=== PATIENT | female | born 1940 | race Caucasian/White ===

== ENCOUNTER → 2017-08-05 13:08 | Outpatient (CLI) | payer MEDICARE, SELFPAY | PROVIDERS: Family Provider Internal Medicine; PCP Internal Medicine; Visit Provider Internal Medicine | DX: N89.8 Other specified noninflammatory disorders of vagina (principal) | CPT/HCPCS: 87070; 87205 ==

== ENCOUNTER → 2017-08-08 08:12 | Outpatient (CLI) | payer MEDICARE, SELFPAY ==
[2017-08-08 08:56] LABS: Absolute Lymphocyte Count 1.59 X10^3/ul (0.83-4.51); Basophil# 0.03 X10^3/uL; Basophil% 0.5 % (0-1); Eosinophil# 0.23 X10^3/uL; Eosinophils% 3.5 % (0-5); Hematocrit 45.4 % (37-47); Hemoglobin 15.2 g/dl (12.0-15.0); Lymphocyte # 1.59 X10^3/ul (4.0); Lymphocyte % 24.3 % (19-41); Mean Corp Hgb Conc 33.5 g/gl (32-36); Mean Corpuscular Hgb 31.1 pg (27.0-32.0); Mean Platelet Vol. 9.5 fl (6.2-12.0); Monocyte# 0.69 X10^3/uL; Monocyte% 10.6 % (0-10); Neutrophil # 3.98 X10^3/uL (2.7-7.7); Neutrophil % 60.9 % (47-70); Platelet Count 268 K/mm3 (150-450); RBC Distribution Width CV 13.6 % (11.6-14.6); Red Blood Count 4.88 M/mm3 (4.2-5.4); White Blood Count 6.5 K/mm3 (4.4-11.0)
[2017-08-08 08:59] LABS: POSITIVE COUNT NO; POSITIVE DIFFERENTIAL NO; POSITIVE MORPHOLOGY NO
[2017-08-08 09:25] LABS: ALB/GLOB Ratio 1.1 RATIO (0.9-2.4); AST(SGOT) 27 U/L (15-37); Alanine Aminotransfer ALT/SGPT 38 U/L (13-56); Albumin, Serum 4.1 g/dL (3.2-5.0); Alkaline Phosphatase 69 U/L (45-117); Anion Gap 7 (5-15); BUN 18 mg/dL (7-18); BUN/Creat Ratio 16.5 RATIO (10-20); Chloride 100 mmol/L (98-107); Creatinine, Serum 1.09 mg/dL (0.55-1.02); EST Glomerular Filtration Rate 51 mL/min (>60); Est Glom Filt Rate - Afr Amer 62 mL/min (>60); Ferritin 420 ng/mL (8-252); Globulin 3.6 g/dL (2.2-4.2); Glucose 96 mg/dL (74-106); Potassium 4.3 mmol/L (3.5-5.1); Protein, Total 7.7 g/dL (6.4-8.2); Sodium Level 136 mmol/L (136-145)
[2017-08-08 09:28] LABS: Vitamin D,25 Hydroxy 50.4 ng/mL (29.95-100.01)
[2017-08-09 20:07] LABS: CHOLESTEROL TOTAL 157 mg/dL (100-199); HDL-C 61 mg/dL (>39); HDL-P TOTAL 46.1 umol/L (>=30.5); SMALL LDL-P 463 nmol/L (<=527); TRIGLYCERIDES 115 mg/dL (0-149)
[2017-08-10 11:16] LABS: LDL SIZE 20.6 nm (>20.5); LDL-C 73 mg/dL (0-99); LDL-P 942 nmol/L (<1000); LP-IR SCORE ** 42 (<=45)
== END ==
PROVIDERS: Family Provider Internal Medicine; PCP Internal Medicine; Visit Provider Internal Medicine
DX: I10 Essential (primary) hypertension (principal); R79.9 Abnormal finding of blood chemistry, unspecified; E55.9 Vitamin D deficiency, unspecified
CPT/HCPCS: 36415; 80053; 80061; 82306; 82728; 83704; 85025

== ENCOUNTER → 2017-08-11 14:59 | Outpatient (CLI) | payer MEDICARE, SELFPAY ==
--- NOTE | 2017-08-11 15:07 | US_ITS ---
STUDY: ULTRASOUND OF THE FEMALE PELVIS - COMPLETE REASON FOR EXAM: Female, 77 years old. Pelvic cramping. LMP: Unknown. TECHNIQUE: Transabdominal and Transvaginal TECHNICAL QUALITY: Adequate. COMPARISON: CT of the abdomen and pelvis dated October 09, 2015. FINDINGS: The uterus is anteverted and is in a midline position. The uterus measures 6.5 x 3.2 x 4.1 cm. Normal uterine cervix. The endometrium measures 1.9 mm in thickness, and is hyperechoic. There is no demonstrated endometrial mass. There is an echogenic myometrial mass located within the posterior myometrium measuring 2.9 x 2.0 x 2.1 cm. There is a second echogenic nodule within the anterior myometrium measuring 11.5 x 9.6 x 13.9 mm. I.U.D. - The patient does not have an I.U.D. The right ovary is non-visualized. There is no visualized right adnexal mass or complex lesion. There is normal arterial and normal venous vascularity. The left ovary is non-visualized. There is no visualized left adnexal mass or complex lesion. There is normal arterial and normal venous vascularity. There is no fluid in the cul-de-sac. US/Pelvic (Non ) IMPRESSION: 1. Multiple uterine masses. The largest mass appears to have fat within it. 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 Liposarcoma is not excluded. The smaller mass is probably a leiomyoma. 2. Nonvisualization of the ovaries. Electronically Signed: Maryan Coughlin MD at 9:19 EDT , Service support ,
== END ==
PROVIDERS: Family Provider Internal Medicine; PCP Internal Medicine; Visit Provider Internal Medicine
DX: R10.31 Right lower quadrant pain (principal); R10.32 Left lower quadrant pain
CPT/HCPCS: 76856

== ENCOUNTER → 2017-08-25 07:02 | Outpatient (CLI) | payer MEDICARE, SELFPAY ==
--- NOTE | 2017-08-25 07:06 | MRI_ITS ---
STUDY: MR PELVIS WITH T WITHOUT CONTRAST REASON FOR EXAM: Female, 77 years old. Uterine mass, f/u to u/s, pelvic pain, bleeding TECHNIQUE: Standardized fat and water weighted pulse sequences were obtained in all 3 orthogonal planes, pre-and post contrast administration. 7 ml of Gadavist contrast material was administered intravenously for the contrast portion of the examination. COMPARISON: US Pelvis Aug 11 2017 3:12pm CT Abdomen/Pelvis Oct 09 2015 11:06am FINDINGS: Normal urinary bladder. Normal visualized small intestine. Normal visualized colon. There is no pelvic fluid. There is a 31 x 20mm mixed T2 signal mass in the midline uterine fundus. It has central low T2 signal and peripheral increased T2 signal. This lesion also has mixed T1 signal. There is no enhancement. There is a 13x 11mm low T2 signal mass slightly to the left of midline in the uterine fundus. It has low STIR signal. There is diffuse atherosclerotic calcification of the pelvic arteries. There are diffuse degenerative changes of the visualized lumbar spine. Normal abdominal wall. 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 There is a fibroid of the left uterine body. Electronically Signed: Danyel Jean Baptiste MD at 23:30 EDT , Service support ,
== END ==
PROVIDERS: Family Provider Internal Medicine; PCP Internal Medicine; Visit Provider Internal Medicine
DX: N85.9 Noninflammatory disorder of uterus, unspecified (principal)
CPT/HCPCS: 72197; A9585

== ENCOUNTER → 2017-09-29 07:58 | Outpatient (CLI) | payer MEDICARE, SELFPAY ==
--- NOTE | 2017-09-29 08:00 | CT_ITS ---
STUDY: CT ABDOMEN AND PELVIS WITH AND WITHOUT CONTRAST REASON FOR EXAM: Female, 77 years old. Microscopic hematuria. RADIATION DOSAGE (If Supplied By Facility): CTDIvol = ( 13.84 ) mGy, DLP = ( 1221.35 ) mGycm TECHNIQUE: Transaxial images were obtained from the dome of the diaphragm to the symphysis pubis without oral contrast. 100 ml of Isovue 300 contrast was administered. Sagittal and coronal images were reconstructed. Individualized dose optimization techniques were used for this CT. COMPARISON: Comparison is made with prior study dated October 09, 2015. FINDINGS: Stable mild increased markings at the lung bases suggestive of a mild degree of scarring. The visualized portions of the heart are within normal limits. Normal liver. Normal gallbladder and extrahepatic biliary system. Normal spleen. Normal pancreas. Normal bilateral adrenal glands. Punctate calcification in the posterior mid calyx of the right kidney. Normal left kidney. Moderate sized hiatal hernia. Normal small intestine. There are multiple colonic diverticula consistent with diverticulosis. The appendix is visualized and appears normal. There is diffuse atherosclerotic calcification of the abdominal aorta, without a demonstrated aneurysm. Normal inferior vena cava. Normal retroperitoneum. Normal urinary bladder. There is a 1.8 cm x 2.6 cm hypodensity in the fundal portion of the uterus. This most likely represents uterine fibroid. The pessary device is not seen at this time. Normal abdominal wall. There are degenerative changes of the visualized lumbar spine. CT/CT Abd/Pelvis W/WO Contrast IMPRESSION: Stable punctate calcification in the lower pole cortex of the right kidney. Electronically Signed: Denilson Sarkar MD at 10:56 EDT Tel [phone], Service support ,
[2017-09-29 08:15] LABS: CREATININE FINGERSTICK 0.6 mg/dL (0.55-1.02); EGFR FINGERSTICK > 60.0000 mL/min (>60)
== END ==
PROVIDERS: Family Provider Internal Medicine; PCP Internal Medicine; Visit Provider Nurse Practitioner Adult Health
DX: Z01.812 Encounter for preprocedural laboratory examination (principal); R31.29 Other microscopic hematuria
CPT/HCPCS: 74178; Q9967

== ENCOUNTER → 2018-01-24 14:49 | Outpatient (CLI) | payer MEDICARE, SELFPAY ==
--- NOTE | 2018-01-24 14:51 | RAD_ITS ---
STUDY: X-RAY - RIGHT KNEE REASON FOR EXAM: Pain. TECHNIQUE: 4 view(s) of the knee. COMPARISON: Radiographs 09/13/2014. FINDINGS: Normal visualized distal femur. Normal visualized proximal tibia and fibula. Normal proximal tibiofibular articulation. There is mild space narrowing of the medial femorotibial compartment. Normal lateral femorotibial compartment. Normal patellofemoral articulation. There is an enthesophyte at the superior pole of the patella. RAD/Knee 4 or More Views IMPRESSION: Mild arthrosis of the medial femorotibial compartment without interval change. Electronically Signed: Moustapha Israel MD at 13:41 EDT Tel , Service support ,
== END ==
PROVIDERS: Family Provider Internal Medicine; PCP Internal Medicine; Referring Provider Orthopaedic Surgery; Visit Provider Orthopaedic Surgery
DX: M25.561 Pain in right knee (principal)
CPT/HCPCS: 73564

== ENCOUNTER → 2018-01-25 14:40 | Outpatient (CLI) | payer MEDICARE, SELFPAY ==
--- NOTE | 2018-01-25 14:42 | BI_ITS ---
MAMMOGRAPHY - BILATERAL SCREENING REASON FOR EXAM: Female, 77 years old. Routine annual screening examination. PERTINENT HISTORY: Aunt with breast cancer. Remote right excisional breast biopsy. TECHNIQUE: Digital bilateral breast alexus (3D mammographic acquisition) in the CC and MLO projections. 2-D mediolateral oblique (MLO) and craniocaudad (CC) views of both breasts were obtained. CAD: Full Field Digital Mammography with Computer Added Detection was performed. COMPARISON: Comparison is made with prior examination dated October 25, 2016 and April 08, 2014. FINDINGS: Breast Composition: There are scattered areas of fibroglandular density. There are no dominant masses or suspicious calcifications. Stable small benign-appearing bilateral axillary lymph nodes. No other significant abnormalities are identified. There has been no significant change since the prior study. BI/SCREENING MAMM (CAD), BILAT IMPRESSION: Stable bilateral screening mammogram. Yearly follow-up mammogram recommended. (A) ASSESSMENT CATEGORY: BIRADS Category 2: Benign. A letter regarding these results will be sent to the patient by the facility within 30 days. Approximately 10% of breast cancers are not detected by mammography. A normal mammogram should not delay biopsy of a clinically suspicious abnormality. [id number] Electronically Signed: Denilson Sarkar MD at 15:46 EDT Tel [phone], Service support ,
== END ==
PROVIDERS: Family Provider Internal Medicine; PCP Internal Medicine; Visit Provider Internal Medicine
DX: Z12.31 Encounter for screening mammogram for malignant neoplasm of breast (principal)
CPT/HCPCS: 77063; 77067

== ENCOUNTER → 2019-02-12 12:47 | Outpatient (CLI) | payer MEDICARE, SELFPAY ==
--- NOTE | 2019-02-12 12:51 | BI_ITS ---
MAMMOGRAPHY - BILATERAL SCREENING REASON FOR EXAM: Female, 78 years old. Routine annual screening examination. PERTINENT HISTORY: Aunt with breast cancer. Remote right excisional breast biopsy. TECHNIQUE: Digital bilateral breast wei (3D mammographic acquisition) in the CC and MLO projections. 2-D mediolateral oblique (MLO) and craniocaudad (CC) views of both breasts were obtained. CAD: Full Field Digital Mammography with Computer Added Detection was performed. COMPARISON: Comparison is made with prior study dated January 25, 2018 and October 25, 2016. FINDINGS: Breast Composition: There are scattered areas of fibroglandular density. There are no dominant masses or suspicious calcifications. No other significant abnormalities are identified. There has been no significant change since the prior study. BI/SCREEN MAMM (CAD) W/WEI BILAT IMPRESSION: Stable bilateral screening mammogram. Yearly follow-up mammogram recommended. (A) ASSESSMENT CATEGORY: BIRADS Category 1: Negative. A letter regarding these results will be sent to the patient by the facility within 30 days. Approximately 10% of breast cancers are not detected by mammography. A normal mammogram should not delay biopsy of a clinically suspicious abnormality. [id number] Electronically Signed: Denilson Sarkar, at 15:08 EDT , Service support ,
== END ==
PROVIDERS: Family Provider Internal Medicine; PCP Internal Medicine; Referring Provider Internal Medicine; Visit Provider Internal Medicine
DX: Z12.31 Encounter for screening mammogram for malignant neoplasm of breast (principal)
CPT/HCPCS: 77063; 77067

== ENCOUNTER 2019-05-08 07:29 | Day surgery (SDC) | payer MEDICARE, SELFPAY ==
--- NOTE | 2019-04-02 05:58 | HP_ITS ---
Intake Vital Signs 04/02/19 Height 5 ft 2 in 04/02/19 Weight: 148 lb 04/02/19 Body Mass Index (BMI) 27.1 04/02/19 Blood Pressure 122/69 H 04/02/19 Blood Pressure Location Rt brachial 04/02/19 Blood Pressure Position Sitting 04/02/19 Respiratory Rate 18 04/02/19 Pulse Rate 72 04/02/19 Pulse Source Monitor 04/02/19 Temperature 98.1 F 04/02/19 Temperature Source Oral 04/02/19 Pulse Ox 100 04/02/19 Oxygen Delivery Method room air Intake Visit Reasons: cscope consult Chief Complaint: constipation Civil Engineer'S Aide Required: No Is patient in pain?: No Allergies enalaprilat [From Vasotec] Allergy (Severe, Verified 04/02/19 16:11) throat swelling/SOB clopidogrel [From Plavix] Allergy (Intermediate, Verified 04/02/19 16:12) redness of face erythromycin base Allergy (Intermediate, Verified 04/02/19 16:11) stomach cramps Iodinated Contrast Media [Iodinated Contrast- Oral and IV Dye] Allergy (Unknown, Verified 04/02/19 16:10) Shortness of breath,rash Penicillins Allergy (Verified 04/02/19 16:10) Rash hydroxychloroquine [From Plaquenil] Adverse Reaction (Verified 04/02/19 16:11) nausea and vomiting Medications aspirin 81 mg tablet,delayed release 81 mg PO .M-W-F tab 04/02/19 [History Confirmed 04/02/19] atorvastatin 10 mg tablet 10 mg PO QHS 04/02/19 [History Confirmed 04/02/19] azelastine 137 mcg (0.1 %) nasal spray aerosol 2 spray INTRANASAL BID 04/02/19 [History Confirmed 04/02/19] budesonide 32 mcg/actuation nasal spray 2 spray INTRANASAL BID ml 04/02/19 [History Confirmed 04/02/19] clonazepam 0.5 mg tablet 0.25 mg PO QHS tab 04/02/19 [History Confirmed 04/02/19] estradiol 0.01% (0.1 mg/gram) vaginal cream 1 g VAGINAL .3xW g 04/02/19 [History Confirmed 04/02/19] levothyroxine 88 mcg capsule 88 mcg PO DAILY 04/02/19 [History] metoprolol succinate ER 25 mg tablet,extended release 24 hr 25 mg PO QHS tab 04/02/19 [History Confirmed 04/02/19] metronidazole 1 % topical gel 1 applic TOPICAL .M-W-F g 04/02/19 [History Confirmed 04/02/19] montelukast 10 mg tablet 10 mg PO QPM 04/02/19 [History Confirmed 04/02/19] rabeprazole 20 mg tablet,delayed release 20 mg PO BID 04/02/19 [History Confirmed 04/02/19] spironolactone 50 mg tablet 50 mg PO DAILY 04/02/19 [History Confirmed 04/02/19] triamcinolone acetonide 0.1 % topical ointment 1 applic TOPICAL BID PRN 04/02/19 [History Confirmed 04/02/19] PFS Medical History (Updated 04/02/19 @ 17:56 by Urbano Multani MD) Change in bowel habits (Acute) Personal history of colonic polyps (Acute) Acid reflux (Acute) Anxiety (Acute) Arthritis (Acute) Asthma (Acute) Blood in stool (Acute) Constipation (Acute) History of back problems (Acute) Hypercholesterolemia (Acute) Thyroid disease (Acute) hemorroids (Acute) Hypertension (Chronic) Surgical History (Updated 04/02/19 @ 16:08 by Rachel Falcon) history right breast biopsy (Acute) Family History (Updated 04/02/19 @ 16:08 by Rachel Falcon) Brother Cancer lung cancer Social History (Updated 04/02/19 @ 17:58 by Urbano Multani MD) Smoking Status: Former smoker alcohol intake: current alcohol intake frequency: holidays/special occasions only substance use type: does not use HPI HPI HPI: SUZI BHAGAT is a 78 F who presents to the office today for HPI HPI Surgical H&P: Yes HPI: SUZI BHAGAT is a 78 F who presents to the office today for surgical consultation regarding a personal history of colon polyps and change of bowel habits with more recent onset of constipation. February 11, 2014 the patient had both an upper and lower endoscopy done by Dr. Anival Fermin. The upper endoscopy demonstrated some mild gastritis. The colonoscopy was performed at that point because of a personal history of colon polyps. Recommendations that time were to pursue follow-up colonoscopy 5 years. The patient had a previous colonoscopy in 2008. That report reference a personal history of tubular adenoma the colon. The patient is also had hyperplastic polyps found. On this presentation in addition to the personal history of colon polyps she is complaining of acute onset of constipation with some intermittent rectal bleeding. She has had some rectal bleeding in the past when she was otherwise ill. She is clearly very stressed as she is the primary caregiver for her ill . She states that she thinks her weights been stable. She has not noticed any abdominal pain. The patient is referred by Dr. Selena Latham for surgical consultation regarding personal history of colon polyps and change of bowel habits and a written copy of my surgical consult recommendations will be returned to her ROS General General: Yes fatigue; no weight change, appetite, colon cancer, breast cancer or weakness HEENT HEENT: No difficulty swallowing, eye injury, eye surgery, swollen glands or hoarseness Endo Endocrine: Yes thyroid disease; no diabetes mellitus, thyroid cancer, Hair loss, heat intolerance or cold intolerance Skin Skin: No rash or changing moles Breast Breast: No left breast lump, right breast lump, nipple discharge, breast pain, abnormal mammogram, abnormal US or breast enlargement Musc Musculoskeletal: Yes back problems and arthritis; no rheumatoid arthritis, gout or joint pain Cardio Cardiovascular: Yes high blood pressure; no murmur, pacemaker, heart disease, atrial fibrillation, heart attack, heart stent, palpitations, shortness of breat with exertion or chest pain Psych Psychiatric: Yes anxiety; no depression or hearing voices Resp Respiratory: Yes shortness of breath, No sleep apnea, No cough, No COPD, Yes asthma, No emphysema, No wheezing Gastro Gastrointestinal: No abdominal pain, No nausea or vomiting, No diarrhea, Yes constipation, Yes blood in stool, Yes acid reflux, Yes hemorrhoids, No ulcers, No gallbladder problem, No black,tarry stools Luis Hematologic: No blood thinners, No blood disorders, No bleeding, No anemia, No blood clots Neuro Neurologic: No system reviewed and no additional complaints, except as docu, No as per HPI, No abnormal walking, No abnormal hearing, No abnormal movements, No abnormal speech, No behavioral changes, No burning sensations, No confusion, No seizure-like activity, No unsteadiness, No dizziness, No localized weakness, No frequent falls, No headache(s), No lack of coordination, No loss of vision, No memory loss, No numbness, No other visual disturbances, No radiating pain, No restless legs, No sensory deficit, No fainting, No tingling, No tremor(s), No weakness, No other Exam Const General: cooperative, healthy appearing, comfortable Nutritional Appearance: average body habitus Orientation: alert, awake [facility] Head: normal to inspection Eyes General: appearance normal, both eyes and all related structures Chest Chest palpation & inspection: normal inspection of the chest Breast Palpation: No nipple discharge Resp Effort & Inspection: normal respiratory effort Auscultation: clear to auscultation bilaterally Cardio Rate: regular rate Rhythm: regular rhythm Heart Sounds: no murmurs GI Palpation: soft, no hepatosplenomegaly Auscultation: normal bowel sounds Skin General: no rashes or lesions noted Neuro Cognition: normal cognition Extrem General: no calf tenderness bilaterally Psych Affect: normal affect Assessment & Plan Problems 1. Personal history of colonic polyps Z86.010 2. Change in bowel habits R19.4 Plan 78-year-old female who otherwise appears to have reasonable health. She clearly is demonstrating evidence of stress associated with caring for her . She has had an acute change of bowel habits although she is not admitting to a significant dietary change. She does utilize brand cereal and FiberCon daily. She sometimes will note some bright red blood on the tissue. She has no pain with that. I recommended the patient a colonoscopy with possible biopsy or polypectomy as indicated. She is aware of the technique, benefits, risks, alternatives. She has had an opportunity to ask and have questions answered. I would consider random colonic biopsies if indicated. It is likely anticipated that this will be her final colonoscopy and less definitive symptoms warrant. She is comfortable with that and based upon age anticipate proceeding with monitored anesthesia care. I appreciate the opportunity of assisting with her surgical care. She prefers this be performed in an hospital setting rather than in an outpatient setting CC: Dr. Selena Multani M.D., F.A.C.S. Coding Level of Care Code 04237 Diagnoses Personal history of colonic polyps Z86.010 Change in bowel habits R19.4 04/02/19 1758 <Electronically signed by Urbano solis MD> Date _ Urbano Multani MD I have re-examined the patient. There are no clinical changes since date of exam.
[2019-04-02 16:09] VITALS: BMI 27.1
[2019-05-08 07:56] VITALS: BP 121/69; PULSE 58; RESP 15; TEMP 36.1; O2SAT 100; BMI 25.1
[2019-05-08] MEDS: Lactated Ringers 1,000 ML 100 ML IV (08:08)
--- NOTE | 2019-05-08 08:30 | COLBX_PTH ---
PATIENT: SUZI BHAGAT LOC: EN U#:[id number] AGE/SX: 78/F ROOM: RE05/08/[address]: Dr. Urbano Multani MD : 1940 BED: DIS: 05/08/2019 SPEC #: [id number] RECD: 05/08/19 09:05 STATUS: JULIANA CRISTIAN #: [id number] JUDE: 05/08/19 08:[address]: Urbano Multani DEPT: SURGICAL PATHOLOGY RECD BY: Tha Snyder ENTERED: 05/08/19 13:15 SP TYPE: COLON BX JULES DR: Dr. Selena Latham MD Tissues: A - Cecum, NOS B - Ascending colon C - COLON BIOPSY Procedures: Surgery Specimen Level IV HEADER OPERATION: Colonoscopy (MAC) PRE-OP DIAGNOSIS: History colon polyps, change in bowel habits TISSUE SUBMITTED: A - Cecal polyp, B - Ascending colon polyp, C - Random colon biopsy MICROSCOPIC DIAGNOSIS A. Cecal polyp, biopsy: Tubular adenoma. B. Ascending colon polyp, biopsy: Tubular adenoma. C. Colon, random biopsy: No pathologic change. AM:courtney 05/09/19 MICROSCOPIC DESCRIPTION Slides are reviewed. GROSS DESCRIPTION A - Received in fixative is one container labeled with the patient's name and designated cecal polyp. The specimen consists of a piece of perez-pink polyp measuring 0.4 x 0.4 x 0.1 cm. The specimen is totally submitted in one cassette. B - Received in fixative is one container labeled with the patient's name and designated ascending colon polyp biopsy. The specimen consists of one irregular fragment of light perez soft tissue that measures 0.2 x 0.2 x 0.1 cm. The specimen is totally submitted in one cassette. C - Received in fixative is one container labeled with the patient's name and designated random colon biopsy. The specimen consists of multiple irregular fragments of light perez soft tissue that in aggregate measure 1.5 x 0.3 x 0.1 cm. The specimen is totally submitted in one cassette. / TY:courtney 05/08/19 TC:5 CPT: 45871 x3
[2019-05-08 08:51] VITALS: BP 121/69; BP 99/58; PULSE 74; RESP 15; TEMP 36.3; O2SAT 93
--- NOTE | 2019-05-08 08:54 | OP.COLON_ITS ---
Patient Name: Nga Garrett Procedure Date: 05/08/2019 8:20 AM Date of : 1940 Age: 78 Procedure: Colonoscopy Indications: High risk colon cancer surveillance: Personal history of colonic polyps Providers: Urbano Multani MD Referring MD: Selena Latham Medicines: See the Anesthesia note for documentation of the administered medications Patient Profile: Last Colonoscopy: January 2014. Complications: No immediate complications. Procedure: Pre-Anesthesia Assessment: - Prior to the procedure, a History and Physical was performed, and patient medications and allergies were reviewed. The patient's tolerance of previous anesthesia was also reviewed. The risks and benefits of the procedure and the sedation options and risks were discussed with the patient. All questions were answered, and informed consent was obtained. Prior Anticoagulants: The patient has taken no previous anticoagulant or antiplatelet agents. ASA Grade Assessment: II - A patient with mild systemic disease. After reviewing the risks and benefits, the patient was deemed in satisfactory condition to undergo the procedure. After I obtained informed consent, the scope was passed under direct vision. Throughout the procedure, the patient's blood pressure, pulse, and oxygen saturations were monitored continuously. The colonoscope was introduced through the anus and advanced to the cecum, identified by appendiceal orifice and ileocecal valve. The colonoscopy was performed with moderate difficulty due to a tortuous colon. Successful completion of the procedure was aided by applying abdominal pressure. The patient tolerated the procedure well. The quality of the bowel preparation was good. Scope In: 8:28:55 AM Scope Withdrawal Time 0 hours 9 minutes 38 seconds Scope Out: 8:46:57 AM Total Procedure Duration Time 0 hours 18 minutes 2 seconds Findings: The digital rectal exam findings include non-thrombosed internal hemorrhoids and internal hemorrhoids that prolapse with straining, but require manual replacement into the anal canal (Grade III). A 6 mm polyp was found in the cecum. The polyp was sessile. The polyp was removed with a cold snare. Resection and retrieval were complete. A 3 mm polyp was found in the proximal ascending colon. The polyp was sessile. The polyp was removed with a cold biopsy forceps. Resection and retrieval were complete. Scattered diverticula were found in the sigmoid colon. Biopsies for histology were taken with a cold forceps from the entire colon for evaluation of microscopic colitis. Impression: - Non-thrombosed internal hemorrhoids and internal hemorrhoids that prolapse with straining, but require manual replacement into the anal canal (Grade III) found on digital rectal exam. - One 6 mm polyp in the cecum, removed with a cold snare. Resected and retrieved. - One 3 mm polyp in the proximal ascending colon, removed with a cold biopsy forceps. Resected and retrieved. - Diverticulosis in the sigmoid colon. Biopsied. Recommendation: - Discharge patient to home. - Resume previous diet. - Continue present medications. - Repeat colonoscopy in 5 years for surveillance based on pathology results. - Telephone my office for pathology results in 1 week. If rectal bleeding persists then consider ppH stapled hemorrhoidopexy Procedure Code(s): --- Professional --- 83445, Colonoscopy, flexible; with removal of tumor(s), polyp(s), or other lesion(s) by snare technique 18360, 59, Colonoscopy, flexible; with biopsy, single or multiple Diagnosis Code(s): --- Professional --- Z86.010, Personal history of colonic polyps K64.2, Third degree hemorrhoids D12.0, Benign neoplasm of cecum D12.2, Benign neoplasm of ascending colon K57.30, Diverticulosis of large intestine without perforation or abscess without bleeding CPT copyright 2017 [employer]. All rights reserved. The codes documented in this report are preliminary and upon financial processing clerk review may be revised to meet current compliance requirements. Urbano Multani MD 05/08/2019 8:53:56 AM This report has been signed electronically. Number of Addenda: 0 Note Initiated On: 05/08/2019 8:20 AM
[2019-05-08 08:55] VITALS: BP 121/69; BP 94/62; PULSE 73; RESP 15; O2SAT 98
[2019-05-08 09:00] VITALS: BP 105/65; BP 121/69; PULSE 71; RESP 15; O2SAT 100
[2019-05-08 09:05] VITALS: BP 105/61; BP 121/69; PULSE 69; RESP 15; TEMP 36.3; O2SAT 97
[2019-05-08 09:27] VITALS: BP 121/69
--- NOTE | 2019-05-08 10:39 | HP.PCM_ITS ---
Problem List (1) Personal history of colonic polyps Status: Acute History and Physical Date of Admission: 05/08/19 Intake Visit Reasons: cscope consult Chief Complaint: constipation Instrumentation Engineering Technician Required: No Is patient in pain?: No Allergies enalaprilat [From Vasotec] Allergy (Severe, Verified 04/02/19 16:11) throat swelling/SOB clopidogrel [From Plavix] Allergy (Intermediate, Verified 04/02/19 16:12) redness of face erythromycin base Allergy (Intermediate, Verified 04/02/19 16:11) stomach cramps Iodinated Contrast Media [Iodinated Contrast- Oral and IV Dye] Allergy (Unknown, Verified 04/02/19 16:10) Shortness of breath,rash Penicillins Allergy (Verified 04/02/19 16:10) Rash hydroxychloroquine [From Plaquenil] Adverse Reaction (Verified 04/02/19 16:11) nausea and vomiting Medications aspirin 81 mg tablet,delayed release 81 mg PO .-- tab 04/02/19 [History Confirmed 04/02/19] atorvastatin 10 mg tablet 10 mg PO QHS 04/02/19 [History Confirmed 04/02/19] azelastine 137 mcg (0.1 %) nasal spray aerosol 2 spray INTRANASAL BID 04/02/19 [History Confirmed 04/02/19] budesonide 32 mcg/actuation nasal spray 2 spray INTRANASAL BID ml 04/02/19 [History Confirmed 04/02/19] clonazepam 0.5 mg tablet 0.25 mg PO QHS tab 04/02/19 [History Confirmed 04/02/19] estradiol 0.01% (0.1 mg/gram) vaginal cream 1 g VAGINAL .3xW g 04/02/19 [History Confirmed 04/02/19] levothyroxine 88 mcg capsule 88 mcg PO DAILY 04/02/19 [History] metoprolol succinate ER 25 mg tablet,extended release 24 hr 25 mg PO QHS tab 04/02/19 [History Confirmed 04/02/19] metronidazole 1 % topical gel 1 applic TOPICAL .- g 04/02/19 [History Confirmed 04/02/19] montelukast 10 mg tablet 10 mg PO QPM 04/02/19 [History Confirmed 04/02/19] rabeprazole 20 mg tablet,delayed release 20 mg PO BID 04/02/19 [History Confirmed 04/02/19] spironolactone 50 mg tablet 50 mg PO DAILY 04/02/19 [History Confirmed 04/02/19] triamcinolone acetonide 0.1 % topical ointment 1 applic TOPICAL BID PRN 04/02/19 [History Confirmed 04/02/19] [facility] Medical History (Updated 04/02/19 @ 17:56 by Urbano Multani MD) Change in bowel habits (Acute) Personal history of colonic polyps (Acute) Acid reflux (Acute) Anxiety (Acute) Arthritis (Acute) Asthma (Acute) Blood in stool (Acute) Constipation (Acute) History of back problems (Acute) Hypercholesterolemia (Acute) Thyroid disease (Acute) hemorroids (Acute) Hypertension (Chronic) Surgical History (Updated 04/02/19 @ 16:08 by Rachel Falcon) history right breast biopsy (Acute) Family History (Updated 04/02/19 @ 16:08 by Rachel Falcon) Brother Cancer lung cancer Social History (Updated 04/02/19 @ 17:58 by Urbano Multani MD) Smoking Status: Former smoker alcohol intake: current alcohol intake frequency: holidays/special occasions only substance use type: does not use HPI HPI HPI: SUZI BHAGAT, is a 78 F who presents to the office today for HPI HPI Surgical H&P: Yes HPI: SUZI BHAGAT, is a 78 F who presents to the office today for surgical consultation regarding a personal history of colon polyps and change of bowel habits with more recent onset of constipation. February 11, 2014 the patient had both an upper and lower endoscopy done by Dr. Anival Fermin. The upper endoscopy demonstrated some mild gastritis. The colonoscopy was performed at that point because of a personal history of colon polyps. Recommendations that time were to pursue follow-up colonoscopy 5 years. The patient had a previous colonoscopy in 2008. That report reference a personal history of tubular adenoma the colon. The patient is also had hyperplastic polyps found. On this presentation in addition to the personal history of colon polyps she is complaining of acute onset of constipation with some intermittent rectal bleeding. She has had some rectal bleeding in the past when she was otherwise ill. 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 She states that she thinks her weights been stable. She has not noticed any abdominal pain. The patient is referred by Dr. Selena Latham for surgical consultation regarding personal history of colon polyps and change of bowel habits and a written copy of my surgical consult recommendations will be returned to her ROS General General: Yes fatigue; no weight change, appetite, colon cancer, breast cancer or weakness HEENT HEENT: No difficulty swallowing, eye injury, eye surgery, swollen glands or hoarseness Endo Endocrine: Yes thyroid disease; no diabetes mellitus, thyroid cancer, Hair loss, heat intolerance or cold intolerance Skin Skin: No rash or changing moles Breast Breast: No left breast lump, right breast lump, nipple discharge, breast pain, abnormal mammogram, abnormal US or breast enlargement Musc Musculoskeletal: Yes back problems and arthritis; no rheumatoid arthritis, gout or joint pain Cardio Cardiovascular: Yes high blood pressure; no murmur, pacemaker, heart disease, atrial fibrillation, heart attack, heart stent, palpitations, shortness of breat with exertion or chest pain Psych Psychiatric: Yes anxiety; no depression or hearing voices Resp Respiratory: Yes shortness of breath, No sleep apnea, No cough, No COPD, Yes asthma, No emphysema, No wheezing Gastro Gastrointestinal: No abdominal pain, No nausea or vomiting, No diarrhea, Yes constipation, Yes blood in stool, Yes acid reflux, Yes hemorrhoids, No ulcers, No gallbladder problem, No black,tarry stools Luis Hematologic: No blood thinners, No blood disorders, No bleeding, No anemia, No blood clots Neuro Neurologic: No system reviewed and no additional complaints, except as docu, No as per HPI, No abnormal walking, No abnormal hearing, No abnormal movements, No abnormal speech, No behavioral changes, No burning sensations, No confusion, No seizure-like activity, No unsteadiness, No dizziness, No localized weakness, No frequent falls, No headache(s), No lack of coordination, No loss of vision, No memory loss, No numbness, No other visual disturbances, No radiating pain, No restless legs, No sensory deficit, No fainting, No tingling, No tremor(s), No weakness, No other Exam Const General: cooperative, healthy appearing, comfortable Nutritional Appearance: average body habitus Orientation: alert, awake [facility] Head: normal to inspection Eyes General: appearance normal, both eyes and all related structures Chest Chest palpation & inspection: normal inspection of the chest Breast Palpation: No nipple discharge Resp Effort & Inspection: normal respiratory effort Auscultation: clear to auscultation bilaterally Cardio Rate: regular rate Rhythm: regular rhythm Heart Sounds: no murmurs GI Palpation: soft, no hepatosplenomegaly Auscultation: normal bowel sounds Skin General: no rashes or lesions noted Neuro Cognition: normal cognition Extrem General: no calf tenderness bilaterally Psych Affect: normal affect Assessment & Plan Problems 1. Personal history of colonic polyps Z86.010 2. Change in bowel habits R19.4 Plan 78-year-old female who otherwise appears to have reasonable health. She clearly is demonstrating evidence of stress associated with caring for her . She has had an acute change of bowel habits although she is not admitting to a significant dietary change. She does utilize brand cereal and FiberCon daily. She sometimes will note some bright red blood on the tissue. She has no pain with that. I recommended the patient a colonoscopy with possible biopsy or polypectomy as indicated. She is aware of the technique, benefits, risks, alternatives. She has had an opportunity to ask and have questions answered. I would consider random colonic biopsies if indicated. It is likely anticipated that this will be her final colonoscopy and less definitive symptoms warrant. She is comfortable with that and based upon age anticipate proceeding with monitored anesthesia care. I appreciate the opportunity of assisting with her surgical care. She prefers this be performed in an hospital setting rather than in an outpatient setting CC: Dr. Selena Multani M.D., F.A.C.S. The patient's history and physical exam was reviewed with her today. There is been no change since her previous office visit. She is aware of the technique, benefit, risks, alternatives. We will proceed with colonoscopy with possible biopsy or polypectomy is indicated. Urbano Multani M.D., F.A.C.S.
== END 2019-05-08 10:13 | disposition home or self-care (01) ==
LOC: EN 07:30 → AC 07:31
PROVIDERS: Family Provider Internal Medicine; PCP Internal Medicine; Referring Provider Internal Medicine; Visit Provider Surgery
PROC: 0DJD8ZZ Inspection of Lower Intestinal Tract, Via Natural or Artificial Opening Endoscopic (ICD-10-PCS; CPT 45378; principal; 2019-05-08 08:25)
DX: Z12.11 Encounter for screening for malignant neoplasm of colon (principal); I10 Essential (primary) hypertension; Z86.010 Personal history of colon polyps; K64.2 Third degree hemorrhoids; D12.0 Benign neoplasm of cecum; D12.2 Benign neoplasm of ascending colon; K57.30 Diverticulosis of large intestine without perforation or abscess without bleeding; K59.00 Constipation, unspecified; Z79.82 Long term (current) use of aspirin; Z79.899 Other long term (current) drug therapy; Z87.891 Personal history of nicotine dependence; Z88.0 Allergy status to penicillin; Z88.1 Allergy status to other antibiotic agents
CPT/HCPCS: 45380; 45385; 88305; J7120; J2405

== ENCOUNTER → 2020-02-15 13:06 | Outpatient (CLI) | payer MEDICARE, SELFPAY ==
--- NOTE | 2020-02-15 13:08 | BI_ITS ---
MAMMOGRAPHY - BILATERAL SCREENING REASON FOR EXAM: Female, 79 years old. Routine annual screening examination. PERTINENT HISTORY: Aunt with breast cancer. TECHNIQUE: Digital bilateral breast wei (3D mammographic acquisition) in the CC and MLO projections. 2-D mediolateral oblique (MLO) and craniocaudad (CC) views of both breasts were obtained. CAD: Full Field Digital Mammography with Computer Added Detection was performed. COMPARISON: Comparison is made with prior study dated 02/12/2019 and 01/25/2018. FINDINGS: Breast Composition: There are scattered areas of fibroglandular density. There are no dominant masses or suspicious calcifications. Stable small benign appearing bilateral axillary lymph nodes. No other significant abnormalities are identified. There has been no significant change since the prior study. BI/SCREEN MAMM (CAD) W/WEI BILAT IMPRESSION: Stable bilateral screening mammogram. Yearly follow-up mammogram recommended. (A) ASSESSMENT CATEGORY: BIRADS Category 2: Benign. A letter regarding these results will be sent to the patient by the facility within 30 days. Approximately 10% of breast cancers are not detected by mammography. A normal mammogram should not delay biopsy of a clinically suspicious abnormality. [id number] Electronically Signed: Denilson Sarkar, at 14:45 EDT , Service support ,
== END ==
PROVIDERS: PCP Internal Medicine; Referring Provider Internal Medicine; Visit Provider Internal Medicine
DX: Z12.31 Encounter for screening mammogram for malignant neoplasm of breast (principal)
CPT/HCPCS: 77063; 77067

== ENCOUNTER → 2020-10-28 14:01 | Outpatient (CLI) | payer MEDICARE, SELFPAY ==
[2020-10-28 14:08] VITALS: BP 113/60; PULSE 71; RESP 16; TEMP 36.5; O2SAT 98; BMI 24.3
[2020-10-28] MEDS: 0.9% NaCl Peripheral Flush Adult/Peds IV (14:11)
[2020-10-28] MEDS: Zoledronic Acid 5 MG 100 ML 300 MG IV (14:23)
[2020-10-28 14:49] VITALS: BP 124/64; PULSE 59; RESP 16; O2SAT 97
== END ==
PROVIDERS: PCP Internal Medicine; Referring Provider Internal Medicine; Visit Provider Internal Medicine
DX: M81.0 Age-related osteoporosis without current pathological fracture (principal)
CPT/HCPCS: 96365; A4216; J3489

== ENCOUNTER → 2021-04-29 14:47 | Outpatient (CLI) | payer MEDICARE, SELFPAY ==
--- NOTE | 2021-04-29 14:49 | BI_ITS ---
MAMMOGRAPHY - BILATERAL SCREENING 3-D TOMOSYNTHESIS REASON FOR EXAM: Female, 80 years old. SCREENING PERTINENT HISTORY: No significant family history. TECHNIQUE: 2-D mammograms and 3-D Tomosynthesis of the breast (s) were performed. CAD was performed. COMPARISON: 02/15/2020 FINDINGS: The breast composition is composed of scattered fibroglandular density. Scattered benign calcifications are seen. No dense spiculated masses or suspicious microcalcifications are identified. No architectural distortion is identified. There is no skin thickening or retraction. There has been no significant change since the prior study. BI/SCRN MAMM (CAD)W/WEI BILAT IMPRESSION: No mammographic signs of malignancy. Routine yearly mammograms recommended. ASSESSMENT CATEGORY: BIRADS Category 1: Negative. A letter regarding these results will be sent to the patient by the facility within 30 days. FOLLOW UP RECOMMENDATION: Yearly follow up mammogram recommended. (A) Approximately 10% of breast cancers are not detected by mammography. A normal mammogram should not delay biopsy of a clinically suspicious abnormality. Electronically Signed: John Casey MD at 15:55 EST Tel , Service support ,
== END ==
PROVIDERS: PCP Internal Medicine; Referring Provider Internal Medicine; Visit Provider Internal Medicine
DX: Z12.31 Encounter for screening mammogram for malignant neoplasm of breast (principal)
CPT/HCPCS: 77063; 77067

== ENCOUNTER → 2021-09-25 | Outpatient (CLI) | payer MEDICARE, SELFPAY ==
[2021-09-25 13:42] LABS: Hematocrit 44.5 % (37-47); Hemoglobin 15.6 g/dL (12.0-15.0); Mean Corp Hgb Conc 35.1 g/dL (32-36); Mean Corpuscular Hgb 31.4 pg (27.0-32.0); Mean Corpuscular Volume 89.5 fL (81-99); Mean Platelet Vol. 9.1 fl (6.2-12.0); Platelet Count 314 K/mm3 (150-450); RBC Distribution Width CV 12.2 % (11.6-14.6); RBC Distribution Width SD 40.2 fl (35.1-43.9); Red Blood Count 4.97 M/mm3 (4.2-5.4); White Blood Count 7.4 K/mm3 (4.4-11.0)
[2021-09-25 14:11] LABS: ALB/GLOB Ratio 1.2 RATIO (0.9-2.4); AST(SGOT) 25 U/L (15-37); Alanine Aminotransfer ALT/SGPT 43 U/L (13-56); Alkaline Phosphatase 67 U/L (45-117); Anion Gap 16 (5-15); BUN 13 mg/dL (7-18); BUN/Creat Ratio 8.1 RATIO (10-20); Calcium,Total 8.6 mg/dL (8.5-10.1); Chloride 87 mmol/L (98-107); EST Glomerular Filtration Rate 33 mL/min (>60); Est Glom Filt Rate - Afr Amer 40 mL/min (>60); Globulin 3.2 g/dL (2.2-4.2); Glucose 97 mg/dL (74-106); Potassium 5.8 mmol/L (3.5-5.1); Protein, Total 7.2 g/dL (6.4-8.2); Sodium Level 126 mmol/L (136-145); Total Bilirubin < 0.10 mg/dL (0.20-1.00)
== END | disposition home or self-care (01) ==
LOC: LABSPEC 13:13
PROVIDERS: PCP Internal Medicine; Referring Provider Internal Medicine; Visit Provider Internal Medicine
DX: R53.82 Chronic fatigue, unspecified (principal); U09.9 Post COVID-19 condition, unspecified
CPT/HCPCS: 80053; 85027

== ENCOUNTER → 2022-04-14 | Outpatient (CLI) | payer MEDICARE, SELFPAY ==
[2022-04-14 16:10] LABS: Absolute Lymphocyte Count 1.49 X10^3/uL (0.83-4.51); Absolute Neutrophil Count 5.2 X10^3/uL (2.0-7.7); Basophil# 0.04 X10^3/uL; Basophil% 0.5 % (0-1); Eosinophil# 0.12 X10^3/uL; Eosinophils% 1.6 % (0-5); Hematocrit 43.4 % (37-47); Hemoglobin 14.3 g/dL (12.0-15.0); Lymphocyte # 1.49 X10^3/ul (0.83-4.51); Lymphocyte % 19.5 % (19-41); Mean Corp Hgb Conc 32.9 g/dL (32-36); Mean Corpuscular Hgb 31.3 pg (27.0-32.0); Mean Platelet Vol. 9.2 fl (6.2-12.0); Monocyte# 0.73 X10^3/uL; Monocyte% 9.6 % (0-10); NRBC Flagged by Analyzer 0 % (0-5); Neutrophil # 5.23 X10^3/uL (2.7-7.7); Neutrophil % 68.5 % (47-70); Platelet Count 262 K/mm3 (150-450); RBC Distribution Width CV 13.6 % (11.6-14.6); RBC Distribution Width SD 47.6 fl (35.1-43.9); Red Blood Count 4.57 M/mm3 (4.2-5.4); White Blood Count 7.6 K/mm3 (4.4-11.0)
[2022-04-14 16:31] LABS: ALB/GLOB Ratio 1.4 RATIO (0.9-2.4); AST(SGOT) 27 U/L (15-37); Alanine Aminotransfer ALT/SGPT 38 U/L (13-56); Albumin, Serum 4.2 g/dL (3.2-5.0); Alkaline Phosphatase 52 U/L (45-117); Anion Gap 4 (5-15); BUN 18 mg/dL (7-18); BUN/Creat Ratio 20.1 RATIO (10-20); CPK Total, Creatine Kinase 128 U/L (26-192); Chloride 108 mmol/L (98-107); EST Glomerular Filtration Rate 64 mL/min (>60); Est Glom Filt Rate - Afr Amer 77 mL/min (>60); Glucose 102 mg/dL (74-106); Protein, Total 7.2 g/dL (6.4-8.2); Sodium Level 142 mmol/L (136-145); Troponin-I HS 7 pg/mL (3.0-54.0)
== END | disposition home or self-care (01) ==
LOC: LAB 15:55
PROVIDERS: PCP Internal Medicine; Visit Provider Internal Medicine
DX: R07.89 Other chest pain (principal)
CPT/HCPCS: 36415; 80053; 82550; 84484; 85025

== ENCOUNTER → 2022-04-29 | Outpatient (CLI) | payer MEDICARE, SELFPAY ==
--- NOTE | 2022-04-29 09:28 | BI_ITS ---
MAMMOGRAPHY - BILATERAL DIAGNOSTIC REASON FOR EXAM: Female, 81 years old. NODULE PERTINENT HISTORY: Non-contributory. TECHNIQUE: Digital examination. Mediolateral oblique (MLO) and craniocaudad (CC) views of both breasts were obtained. CAD: CAD was performed on this study. COMPARISON: 04/29/2021 FINDINGS: Breast Composition: There are scattered areas of fibroglandular density. There are no dominant masses or suspicious calcifications. No other significant abnormalities are identified. BI/DIAG MAMM W/CAD, BILAT IMPRESSION: Stable bilateral diagnostic mammogram. ASSESSMENT CATEGORY: BIRADS Category 1: Negative. A letter regarding these results will be sent to the patient by the facility within 30 days. FOLLOW UP RECOMMENDATION: Yearly follow up mammogram recommended. (A) Approximately 10% of breast cancers are not detected by mammography. A normal mammogram should not delay biopsy of a clinically suspicious abnormality. Electronically Signed: John Casey MD at 10:29 EST ,
== END | disposition home or self-care (01) ==
LOC: OPBI 09:23
PROVIDERS: PCP Internal Medicine; Visit Provider Internal Medicine
DX: R92.2 Inconclusive mammogram (principal); N63.0 Unspecified lump in unspecified breast
CPT/HCPCS: 77062; 77066; G0279

== ENCOUNTER → 2023-05-04 | Outpatient (CLI) | payer MEDICARE, SELFPAY ==
--- NOTE | 2023-05-04 13:13 | BI_ITS ---
MAMMOGRAPHY - BILATERAL SCREENING REASON FOR EXAM: Female, 82 years old. Routine annual screening examination. PERTINENT HISTORY: Aunt with breast cancer. Remote right excisional breast biopsy. TECHNIQUE: Digital bilateral breast wei (3D mammographic acquisition) in the CC and MLO projections. 2-D mediolateral oblique (MLO) and craniocaudad (CC) views of both breasts were obtained. CAD: Full Field Digital Mammography with Computer Added Detection was performed. COMPARISON: Comparison is made with prior study dated April 29, 2021 and April 29, 2022. FINDINGS: Breast Composition: There are scattered areas of fibroglandular density. There are no dominant masses or suspicious calcifications. Stable small benign-appearing bilateral axillary lymph nodes. No other significant abnormalities are identified. There has been no significant change since the prior study. BI/SCRN MAMM (CAD)W/WEI BILAT IMPRESSION: Stable bilateral screening mammogram. Yearly follow-up mammogram recommended. (A) ASSESSMENT CATEGORY: BIRADS Category 2: Benign. A letter regarding these results will be sent to the patient by the facility within 30 days. Approximately 10% of breast cancers are not detected by mammography. A normal mammogram should not delay biopsy of a clinically suspicious abnormality. [id number] Electronically Signed: Denilson Sarkar MD at 13:34 EST ,
== END | disposition home or self-care (01) ==
LOC: OPBI 13:13
PROVIDERS: PCP Internal Medicine; Referring Provider Internal Medicine; Visit Provider Internal Medicine
DX: Z12.31 Encounter for screening mammogram for malignant neoplasm of breast (principal); Z80.3 Family history of malignant neoplasm of breast
CPT/HCPCS: 77063; 77067

== ENCOUNTER → 2024-05-24 | Outpatient (CLI) | payer MEDICARE, SELFPAY ==
--- NOTE | 2024-05-24 14:59 | BI_ITS ---
MAMMOGRAPHY - BILATERAL SCREENING REASON FOR EXAM: Female, 83 years old. Routine annual screening examination. PERTINENT HISTORY: Aunt with breast cancer. Remote right excisional breast biopsy. TECHNIQUE: Digital bilateral breast wei (3D mammographic acquisition) in the CC and MLO projections. 2-D mediolateral oblique (MLO) and craniocaudad (CC) views of both breasts were obtained. CAD: Full Field Digital Mammography with Computer Added Detection was performed. COMPARISON: Comparison is made with prior study dated May 04, 2023 and April 29, 2022. FINDINGS: Breast Composition: There are scattered areas of fibroglandular density. There are no dominant masses or suspicious calcifications. Stable small benign appearing bilateral axillary lymph nodes. No other significant abnormalities are identified. There has been no significant change since the prior study. BI/SCRN MAMM (CAD)W/WEI BILAT IMPRESSION: Stable bilateral screening mammogram. Yearly follow-up mammogram recommended. (A) ASSESSMENT CATEGORY: BIRADS Category 2: Benign. A letter regarding these results will be sent to the patient by the facility within 30 days. Approximately 10% of breast cancers are not detected by mammography. A normal mammogram should not delay biopsy of a clinically suspicious abnormality. [id number] Electronically Signed: Denilson Sarkar MD at 8:45 EST ,
== END | disposition home or self-care (01) ==
LOC: OPBI 14:58
PROVIDERS: PCP Internal Medicine; Referring Provider Internal Medicine; Visit Provider Internal Medicine
DX: Z12.31 Encounter for screening mammogram for malignant neoplasm of breast (principal); Z80.3 Family history of malignant neoplasm of breast
CPT/HCPCS: 77063; 77067

== ENCOUNTER → 2024-08-08 | Outpatient (CLI) | payer MEDICARE, SELFPAY ==
--- NOTE | 2024-08-08 12:23 | EMB_PTH ---
PATIENT: SUZI BHAGAT LOC: [facility] U#:[id number] AGE/SX: 84/F ROOM: RE08/08/[address]: VINOD Silva : 1940 BED: DIS: 08/08/2024 SPEC #: [id number] RECD: 08/08/24 13:40 STATUS: JULIANA CRISTIAN #: [id number] JUDE: 08/08/24 12:[address]: Peggy Cr NP DEPT: SURGICAL PATHOLOGY RECD BY: Jarrod Almazan ENTERED: 08/08/24 13:40 SP TYPE: ENDOM BX/C JULES DR: Dr. Selena Latham MD Tissues: A - Endometrium, NOS Procedures: Surgery Specimen Level IV HEADER OPERATION: Endometrial biopsy PRE-OP DIAGNOSIS: Thickened endometrium TISSUE SUBMITTED: A- Endometrial lining MICROSCOPIC DIAGNOSIS A. Uterus, endometrial lining, biopsy: * Few strips of superficial endometrial and endocervical epithelium - see note. * Few squamous cells consistent with cervical origin demonstrating reactive changes. * No malignant change is seen in these sections. Note: Very limited amount of superficial epithelium is present. Clinical correlation is necessary to assess the adequacy of this sampling. MICROSCOPIC DESCRIPTION Slides are reviewed. GROSS DESCRIPTION A. Received in formalin in a container labeled with the patient's name, date of , and endometrial lining is a scant amount of wispy soft tissue submitted entirely for cellblock preparation in A1. [facility] 08-08-2024 CPT:49754
== END | disposition home or self-care (01) ==
LOC: LABSPEC 11:02
PROVIDERS: PCP Internal Medicine; Referring Provider Nurse Practitioner Women's Health; Visit Provider Nurse Practitioner Women's Health
DX: R93.89 Abnormal findings on diagnostic imaging of other specified body structures (principal)
CPT/HCPCS: 88305

== ENCOUNTER → 2024-09-13 | Outpatient (CLI) | payer MEDICARE, SELFPAY ==
--- NOTE | 2024-09-13 14:03 | US_ITS ---
PROCEDURE: PELVIC W/ TRANSVAGINAL REASON FOR EXAM: THICKENED ENDOMETRIUM ON [place] US TECHNIQUE: Transabdominal and transvaginal pelvic ultrasound COMPARISON: None FINDINGS: Measurements: Uterus: 5.6 cm x 5 cm x 4.2 cm with a volume of 62.1 mL Endometrial Thickness: 19 mm. It is heterogeneous. Right Ovary: Not visualized. Left Ovary: Not visualized.. TRANSABDOMINAL: Uterus: There is evidence of a fundal fibroid measuring 1.2 cm x 1.3 cm x 0.9 cm. Endometrium: The endometrium is heterogeneously thickened and measures 19 mm. Clinical correlation recommended. Right ovary: Not visualized. Left ovary: Not visualized. Other: No large pelvic mass identified. Transvaginal sonography was performed to better visualize the endometrium. TRANSVAGINAL: Uterus: Anteverted. Small fundal fibroid.. Nabothian cyst. Endometrium: Endometrial thickening measuring 19 mm. Clinical correlation recommended. Right ovary: Not visualized. Left ovary: Not visualized. Other adnexal findings: None. Cul-de-sac: No free intraperitoneal fluid identified. Tenderness: No tenderness US/Pelvic w/ Transvaginal IMPRESSION: Endometrium is thickened measuring 19 mm. Clinical correlation recommended. Small uterine fibroid. Reading Location: [facility]
== END | disposition home or self-care (01) ==
LOC: US 14:03
PROVIDERS: PCP Internal Medicine; Referring Provider Nurse Practitioner Women's Health; Visit Provider Nurse Practitioner Women's Health
DX: R93.89 Abnormal findings on diagnostic imaging of other specified body structures (principal)
CPT/HCPCS: 76830; 76856

== ENCOUNTER → 2025-03-11 | Outpatient (CLI) | payer MEDICARE, SELFPAY ==
[2025-03-11 15:59] LABS: Anion Gap 12 (5-15); BUN 37 mg/dL (4-19); BUN/Creat Ratio 21.9 RATIO (10-20); Calcium,Total 9.8 mg/dL (7.6-11.0); Carbon Dioxide 25.6 mmol/L (21.0-32.0); Chloride 105 mmol/L (98-108); Glucose 102 mg/dL (70-99); Potassium 4.6 mmol/L (3.3-5.1)
== END | disposition home or self-care (01) ==
LOC: CIMLAB 11:32
PROVIDERS: PCP Internal Medicine; Referring Provider Internal Medicine; Visit Provider Internal Medicine
DX: N17.9 Acute kidney failure, unspecified (principal)
CPT/HCPCS: 36415; 80048

== ENCOUNTER → 2025-04-12 | Outpatient (CLI) | payer MEDICARE, SELFPAY ==
[2025-04-12 12:43] LABS: Anion Gap 11 (5-15); BUN 30 mg/dL (4-19); BUN/Creat Ratio 28.4 RATIO (10-20); Calcium,Total 9.9 mg/dL (7.6-11.0); Carbon Dioxide 24.2 mmol/L (21.0-32.0); Chloride 103 mmol/L (98-108); Glucose 79 mg/dL (70-99); Potassium 4.2 mmol/L (3.3-5.1)
== END | disposition home or self-care (01) ==
LOC: CIMLAB 09:48
PROVIDERS: PCP Internal Medicine; Referring Provider Internal Medicine; Visit Provider Internal Medicine
DX: N18.31 Chronic kidney disease, stage 3a (principal)
CPT/HCPCS: 36415; 80048